=== PATIENT | female | born 1995 | race Caucasian/White ===

== ENCOUNTER → 2020-11-13 | Outpatient (CLI) | payer OTHER ==
[~2020-11-13] MED LIST: BACTRIM DS TAB1 EACH PO; BENTYL 20MG TAB20 MG PO; IBUPROFEN600 MG PO; KEFLEX CAP 500500 MG PO; ZOFRAN ODT 4 MG4 MG SL
== END ==
LOC: EXRD 10:06
DX: R10.9 Unspecified abdominal pain (principal); R16.2 Hepatomegaly with splenomegaly, not elsewhere classified; K76.9 Liver disease, unspecified
CPT/HCPCS: 76700

== ENCOUNTER 2022-04-23 08:47 | Emergency (ER) | payer BC, OTHER ==
[2022-04-23 09:43] LABS: HEMOGLOBIN 14.2 gm/dl (12.3-15.3); RED BLOOD COUNT 4.72 M/UL (4.00-5.10); WHITE BLOOD COUNT 6.8 K/UL (4.5-11.0)
[2022-04-23 09:59] LABS: BUN/CREATININE RATIO 12 (0-10)
== END 2022-04-23 11:10 | disposition home or self-care (01) ==
LOC: ER1 08:47
PROVIDERS: Emergency Medicine
DX: K80.50 Calculus of bile duct without cholangitis or cholecystitis without obstruction (principal)
CPT/HCPCS: 76705; 80053; 81001; 83690; 84703; 85025; 99284

== ENCOUNTER → 2022-05-04 | Outpatient (CLI) | payer BC, OTHER | LOC: KOH-I 14:00 | DX: E04.2 Nontoxic multinodular goiter (principal) | CPT/HCPCS: 76536 ==

== ENCOUNTER → 2022-05-14 | Outpatient (CLI) | payer BC, OTHER | LOC: NM 07:52 | DX: R10.11 Right upper quadrant pain (principal) | CPT/HCPCS: 78227; A9537 ==